=== PATIENT | male | born 1990 | race Caucasian/White ===

== ENCOUNTER 2021-06-16 21:23 | Emergency (ER) | payer BC ==
[~2021-06-16] VITALS: Ht 185.4 cm; Wt 110.0 kg
[~2021-06-16 21:23] MED LIST: ACETYLCYSTEINE IV ONE; DEXTROSE 5% IV ONE; WATER IV ONE
--- NOTE | 2021-06-16 21:28 | NUR ---
[facility] PT TOOK 200 X 500MG TABLETS OF ACETAMENOPHEN 75 X EXCEDRINE (250 ACETAMOPHEN, 250 ASPIRIN, 65 CAFFEINE) POISON CONTROL CASE # [id number]
[2021-06-16] MEDS ORDERED: ondansetron/PF 4mg/2ml inj IV ONE ×2 (21:30)
[2021-06-16] MEDS ORDERED: charcoal, activated 50 GM/240 ML bottle PO ONE ×2 (21:30)
[2021-06-16] MEDS ORDERED: normal saline 1000ml 1,000 ML IV ONE (21:40)
[2021-06-16] MEDS ORDERED: PEG 3350/Na sulf,bicarb,Cl/KCl oral sol 4 liter bottle PO ONE (21:50)
[2021-06-16] MEDS ORDERED: DEXTROSE 5% IV ONE ×3 (21:55→23:00)
[2021-06-16] MEDS ORDERED: WATER IV ONE ×3 (21:55→23:00)
[2021-06-16] MEDS ORDERED: ACETYLCYSTEINE IV ONE ×3 (21:55→23:00)
[2021-06-16 22:16] LABS: BASOPHILS % (AUTO) 0.3 % (0-1); EOSINOPHILS % (AUTO) 0.7 % (0-6); HEMATOCRIT 40.2 % (42.0-52.0); HEMOGLOBIN 13.8 g/dl (14.0-17.9); LYMPHOCYTES % (AUTO) 36.4 % (21-51); MEAN CORPUSCULAR HEMOGLOBIN 30.9 PG (27.0-31.0); MEAN CORPUSCULAR HGB CONC 34.3 g/dL (33.0-36.5); MEAN CORPUSCULAR VOLUME 90.2 FL (78-98); MEAN PLATELET VOLUME 9.3 FL (7.4-10.4); MONOCYTES # (AUTO) 0.4 X10'3 (0-0.9); MONOCYTES % (AUTO) 6.7 % (2-12); NEUTROPHILS # (AUTO) 3.1 X10'3 (1.8-7.7); NEUTROPHILS % (AUTO) 55.9 % (42-75); PLATELET COUNT 153 X10'3 (140-440); RED BLOOD COUNT 4.46 X10'6 (4.70-6.10); RED CELL DISTRIBUTION WIDTH 13.2 % (11.5-14.5); WHITE BLOOD COUNT 5.5 X10'3 (4.5-11.0)
[2021-06-16 22:19] LABS: ABG HCO3 20.6 mmol/L (22.0-26.0); ABG OXYGEN SATURATION 97.6 % (94-97); ABG PCO2 (T) 32.4 mmHg (35.0-48.0); ABG PO2 (T) 98.3 mmHg (75.0-100.0); ALLEN'S TEST POSITIVE; FCOHb 0.4 % (0.0-3.9); FMetHb 0.2 % (0.0-1.5); PATIENT TEMPERATURE 36.7; TOTAL HEMOGLOBIN 14.6 G/dl (14.0-18.0)
[2021-06-16 22:28] LABS: ALANINE AMINOTRANSFERASE 29 U/L (12-78); ALBUMIN 3.7 G/DL (3.4-5.0); ALBUMIN/GLOBULIN RATIO 1.2 (1.1-1.5); ALKALINE PHOSPHATASE 47 IU/L (46-116); ANION GAP 15 (8-16); ASPARTATE AMINO TRANSFERASE 16 U/L (10-37); BILIRUBIN,TOTAL 0.4 MG/DL (0.1-1.0); BLOOD UREA NITROGEN 14 MG/DL (7-18); BUN/CREATININE RATIO 12.7 (5.4-32.0); CALCIUM 7.6 MG/DL (8.5-10.1); CHLORIDE 104 MMOL/L (99-107); GLUCOSE 135 MG/DL (70-104); SODIUM 141 MMOL/L (135-145); TOTAL CARBON DIOXIDE 21.7 MMOL/L (24-32); TOTAL PROTEIN 6.9 G/DL (6.4-8.2); eGFR 78 ML/MIN
[2021-06-16] MEDS ORDERED: proCHLORperazine 10 MG/2 ml inj IV ONE (22:30)
[2021-06-16 22:54] LABS: ACETAMINOPHEN 95.1 UG/ML (10-30)
[2021-06-16 22:56] LABS: ETHANOL < 0.010 GM/DL (0.0-0.010)
[2021-06-16 22:59] LABS: URINE AMPHETAMINE SCREEN NEGATIVE (Neg); URINE BARBITUATE SCREEN NEGATIVE (Neg); URINE BENZODIAZEPINES SCREEN NEGATIVE (Neg); URINE CANNABINOID SCREEN NEGATIVE (Neg); URINE COCAINE SCREEN NEGATIVE (Neg); URINE METHADONE SCREEN NEGATIVE (Neg); URINE OPIATE SCREEN NEGATIVE (Neg); URINE PHENCYCLIDINE SCREEN NEGATIVE (Neg)
[2021-06-17 01:13] LABS: ALANINE AMINOTRANSFERASE 31 U/L (12-78); ALBUMIN 3.7 G/DL (3.4-5.0); ALBUMIN/GLOBULIN RATIO 1.1 (1.1-1.5); ALKALINE PHOSPHATASE 43 IU/L (46-116); ANION GAP 13 (8-16); ASPARTATE AMINO TRANSFERASE 14 U/L (10-37); BILIRUBIN,TOTAL 0.4 MG/DL (0.1-1.0); BLOOD UREA NITROGEN 12 MG/DL (7-18); BUN/CREATININE RATIO 9.9 (5.4-32.0); CHLORIDE 102 MMOL/L (99-107); CREATININE 1.21 MG/DL (0.60-1.10); GLUCOSE 168 MG/DL (70-104); POTASSIUM 3.7 MMOL/L (3.5-5.1); SODIUM 140 MMOL/L (135-145); TOTAL CARBON DIOXIDE 24.7 MMOL/L (24-32); TOTAL PROTEIN 7.1 G/DL (6.4-8.2); eGFR 70 ML/MIN
--- NOTE | 2021-06-17 01:14 | NUR ---
GARETT (BROTHER) [phone] PLEASE CONTACT WITH ANY UPDATES
[2021-06-17 04:05] LABS: ACETAMINOPHEN 33.9 UG/ML (10-30); ALANINE AMINOTRANSFERASE 32 U/L (12-78); ALBUMIN/GLOBULIN RATIO 1.1 (1.1-1.5); ALKALINE PHOSPHATASE 45 IU/L (46-116); ANION GAP 13 (8-16); ASPARTATE AMINO TRANSFERASE 18 U/L (10-37); BILIRUBIN,TOTAL 0.5 MG/DL (0.1-1.0); BLOOD UREA NITROGEN 11 MG/DL (7-18); BUN/CREATININE RATIO 9.5 (5.4-32.0); CHLORIDE 104 MMOL/L (99-107); CREATININE 1.16 MG/DL (0.60-1.10); GLUCOSE 158 MG/DL (70-104); POTASSIUM 4.2 MMOL/L (3.5-5.1); SODIUM 140 MMOL/L (135-145); TOTAL PROTEIN 7.5 G/DL (6.4-8.2); eGFR 73 ML/MIN
--- NOTE | 2021-06-17 07:28 | NUR ---
Recieved report from ANTHONY Forte. Addendum: 06/17/21 at 0730 by PEBBLES Report recieved from ANTHONY Marmolejo.
--- NOTE | 2021-06-17 07:29 | NUR ---
Gave report to ANTHONY Kinney.
--- NOTE | 2021-06-17 07:39 | NUR ---
Pt placed in bed 25. Given green scrubs and oriented to the unit. Belongs removed. Pt made a verbal agreement that he will not harm himself while in our care.
--- NOTE | 2021-06-17 07:41 | NUR ---
Pt is on a 1799 hold placed by KIMBERLY HERNÁNDEZ.
[2021-06-17 07:45] VITALS: BP 113/71
[2021-06-17] MEDS ORDERED: NO HOME MEDS (07:55)
--- NOTE | 2021-06-17 09:02 | NUR ---
Poison Control called to follow-up. Spoke with Nazia. Given updated lab results. Per Nazia, no further labs or f/u needed.
--- NOTE | 2021-06-17 09:20 | NUR ---
Pt has almost completed drinking Golytely.
--- NOTE | 2021-06-17 09:58 | NUR ---
Pt has positive results with Golytely. He has had multiple visits to the restroom to have BMs. Stool is liquid but not clear at this time.
--- NOTE | 2021-06-17 10:02 | NUR ---
Pt completed drinking Golytely and stool is clear yellow.
--- NOTE | 2021-06-17 12:55 | NUR ---
Pt's is at the bedside.
--- NOTE | 2021-06-17 13:25 | NUR ---
Pt's mother and are both at the bedside.
--- NOTE | 2021-06-17 13:36 | NUR ---
Mental Health staff member Omar dalal to speak with pt, , and mother.
--- NOTE | 2021-06-17 15:00 | NUR ---
Pt's 5150 hold was rescinded. Pt's belongings returned. Given and understands d/c instructions. Escorted out of the department by R[employer]ATING FIELD ASSEMBLER and Security.
== END 2021-06-17 15:00 | disposition home or self-care (01) ==
LOC: ER 21:24
DX: T39.1X2A Poisoning by 4-Aminophenol derivatives, intentional self-harm, initial encounter (principal); T39.012A Poisoning by aspirin, intentional self-harm, initial encounter; R45.851 Suicidal ideations; Y92.89 Other specified places as the place of occurrence of the external cause
CPT/HCPCS: 36415; 36600; 71045; 80053; 80305; 80320; 80329; 82803; 82948; 83880; 84443; 84484; 85018; 85025; 93005; 96361; 96365; 96366; 96375; 99291; J0132; J0780; J2405; J7030; J7060; 96368